=== PATIENT | male | born 1980 | race Caucasian/White ===

== ENCOUNTER 2016-10-10 05:33 | Emergency (ER) | payer OTHER ==
[~2016-10-10 05:33] MED LIST: ASPIRIN81 M1 PO; FLOMAX0.4 M1 PO; HYDROCHLOROTH12.5 MG PO; LORTAB 7.5-5001 TAB PO; LOSARTAN POTASS50 MG PO; MAXZIDE 37.5 M1 EACH PO; VOLTAREN50 MG PO
== END 2016-10-10 05:54 | disposition home or self-care (01) ==
LOC: SED 05:33
DX: J02.9 Acute pharyngitis, unspecified (principal); J32.9 Chronic sinusitis, unspecified; E78.5 Hyperlipidemia, unspecified; I10 Essential (primary) hypertension; F17.200 Nicotine dependence, unspecified, uncomplicated; Z88.8 Allergy status to other drugs, medicaments and biological substances
CPT/HCPCS: 87651; 99282; 99283